=== PATIENT | male | born 1950 | race Two or more races ===

== ENCOUNTER 2019-11-25 17:43 | Emergency (ER) | payer OTHER ==
[~2019-11-25] VITALS: Ht 167.6 cm; Wt 73.5 kg
[2019-11-25 18:15] VITALS: BP 155/84
== END 2019-11-25 20:03 | disposition home or self-care (01) ==
LOC: ER 17:43
DX: S61.210A Laceration without foreign body of right index finger without damage to nail, initial encounter (principal); L03.011 Cellulitis of right finger; W26.8XXA Contact with other sharp object(s), not elsewhere classified, initial encounter; Y92.89 Other specified places as the place of occurrence of the external cause; Y93.89 Activity, other specified; Y99.8 Other external cause status